=== PATIENT | male | born 1980 | race Caucasian/White ===

== ENCOUNTER 2016-11-21 13:51 | Emergency (ER) | payer OTHER ==
[~2016-11-21] VITALS: Ht 172.7 cm; Wt 81.6 kg
[2016-11-21 14:33] LABS: ABSOLUTE BASOPHIL COUNT 0 /CUMM (0.0-0.2); ABSOLUTE EOSINOPHIL COUNT 0 /CUMM (0.0-0.7); ABSOLUTE GRANULOCYTE CT 10.5 /CUMM (1.4-6.5); ABSOLUTE LYMPH COUNT 2.3 /CUMM (1.2-3.4); ABSOLUTE MONOCYTE COUNT 0.8 /CUMM (0.10-0.60); BASOPHIL % 0.1 % (0.0-2.0); EOSINOPHIL % 0.2 % (0-5); GRANULOCYTE % 76.9 % (42.2-75.2); HEMATOCRIT 48.3 % (42-52); MEAN CORPUSCULAR HGB 30.4 PG (27.0-31.0); MEAN CORPUSCULAR HGB CONC 34.3 G/DL (33.0-37.0); MEAN CORPUSCULAR VOLUME 88.7 FL (80.0-94.0); MEAN PLATELET VOLUME 8.2 FL (7.4-10.4); PLATELET COUNT 259 /CUMM (130-400); RBC DISTRIBUTION WIDTH 13.1 % (11.5-14.5); RED BLOOD CELL CT 5.45 /CUMM (4.70-6.10); WHITE BLOOD CELL COUNT 13.6 /CUMM (4.8-10.8)
--- NOTE | 2016-11-21 15:32 | ED GENERAL ADULT ---
History of Present Illness General Chief Complaint: Abdominal Pain/Flank Pain Stated Complaint: BIBA FOR ABD. 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 STATES AROUND NOON A COUPLE OF HIS PLAYERS GOT INTO TROUBLE AND IT FELT OVERWHELMING TO PT. STATES HE STARTED HAVING MID ABDOMINAL PAIN. PT DENIES N/V/D. DENIES CP OR SOB Triage Nurses Notes Reviewed? yes Onset: Abrupt Duration: hour(s):, resolved prior to arrival Timing: recent history Injury Environment: home No Modifying Factors: none HPI: 36-year-old male comes into the emergency room for further evaluation of some upper abdominal pain that occurred earlier around 12:30. 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 Incident occurred at school with some of the students that caused him to be very stressed out. Patient reports that shortly after the incident he was getting lightheaded dizzy and had some upper burning abdominal pain. He denies any chest pain or shortness of breath. Denies any past medical history. Symptoms lasted for a couple of hours and then reports that since she' s been waiting here his symptoms are resolved this time. He currently has no pain. He has no symptoms at this time. (SANDOVAL ENNIS) Past History Travel History Traveled to [place] past 21 day No Medical History Any Pertinent Medical History? none Surgical History Surgical History: non-contributory Psychosocial History What is your primary language Sinhala Tobacco Use: Never used ETOH Use: occasional use Illicit Drug Use: denies illicit drug use Family History Hx Contributory? No (SANDOVAL ENNIS) Review of Systems Review of Systems Constitutional: Reports: no symptoms. EENTM: Reports: no symptoms. Respiratory: Reports: no symptoms. Cardiovascular: Reports: no symptoms. GI: Reports: see HPI. Genitourinary: Reports: no symptoms. Musculoskeletal: Reports: no symptoms. Skin: Reports: no symptoms. Neurological/Psychological: Reports: no symptoms. Hematologic/Endocrine: Reports: no symptoms. Immunologic/Allergic: Reports: no symptoms. All Other Systems: Reviewed and Negative (SANDOVAL ENNIS) Physical Exam Physical Exam General Appearance: well developed/nourished, no apparent distress, alert Head: atraumatic, active bleeding Eyes: Bilateral: normal appearance, EOMI. Ears, Nose, Throat: normal pharynx, normal ENT inspection, hearing grossly normal Neck: normal inspection Respiratory: normal breath sounds, no respiratory distress Cardiovascular: regular rate/rhythm Gastrointestinal: normal bowel sounds, soft, non-tender Back: normal inspection Extremities: normal inspection, normal range of motion, no edema Neurologic/Psych: awake, alert, oriented x 3, normal gait, normal mood/affect Skin: intact, normal color Core Measures ACS in differential dx? No CVA/TIA Diagnosis: No Severe Sepsis Present: No Septic Shock Present: No (SANDOVAL ENNIS) Progress Differential Diagnoses I considered the following diagnoses in my evaluation of the patient: Cholecystitis, pancreatitis, gastritis, anxiety, CO, vasovagal, panic attack, Plan of Care: Orders Procedure Date/time Status TROPONIN LEVEL 11/21 1730 Complete EKG 11/21 1730 Active EKG 11/21 1526 Active TROPONIN LEVEL 11/21 1411 Complete LIPASE 11/21 1411 Complete COMPREHENSIVE METABOLIC PANEL 11/21 1411 Complete CBC WITHOUT DIFFERENTIAL 11/21 1411 Complete AMYLASE 11/21 1411 Complete Laboratory Tests 11/21/16 1800: Troponin I < 0.01 11/21/16 1424: Anion Gap 14, Estimated GFR > 60, BUN/Creatinine Ratio 23.3, Glucose 119 H, Calcium 10.0, Total Bilirubin 0.5, AST 22, ALT 51, Alkaline Phosphatase 60, Troponin I < 0.01, Total Protein 8.3 H, Albumin 4.6, Globulin 3.7, Albumin/ Globulin Ratio 1.2, Amylase 58, Lipase 39, CBC w Diff NO MAN DIFF REQ, RBC 5.45, MCV 88.7, MCH 30.4, RDW 13.1, MPV 8.2, Gran % 76.9 H, Lymphocytes % 16.6 L, Monocytes % 6.2, Eosinophils % 0.2, Basophils % 0.1, Absolute Granulocytes 10.5 H, Absolute Lymphocytes 2.3, Absolute Monocytes 0.8 H, Absolute Eosinophils 0, Absolute Basophils 0, PUBS MCHC 34.3 Initial ED EKG: normal intervals, normal p-waves, normal QRS complex, normal sinus rhythm, rate (68), nonspecific ST T wave chg Repeat EKG: unchanged (SANDOVAL ENNIS) Departure Departure Disposition: HOME OR SELF CARE Condition: Stable Clinical Impression Primary Impression: Abdominal pain Referrals: UNKNOWN (PCP/Family) Additional Instructions: FOLLOW-UP WITH YOUR PRIMARY CARE DOCTOR. rETURN IF ANY OTHER CONCERNS. Please go over all results of today's visit with your primary care doctor. Contact your primary care doctor to let them know you were here in the emergency room. There may be nonspecific findings which may not be related to your visit today here in the emergency room but may require further evaluation and chronic monitoring by your primary care doctor. If you had a laceration today the chance of foreign body always remains. You should follow-up with your primary care doctor for recheck in 3-5 days for a wound check. If you had an x-ray done there is a chance that a fracture could have been missed on initial read and you should follow-up with your primary care doctor for repeat x-rays if symptoms persist. If your blood pressure was elevated here in the emergency room please have rechecked by her primary care doctor within the next 48 hours by your primary care doctor. If you were prescribed a narcotic here in the emergency room or any type of controlled substances you're not allowed to drive while taking this medication or operate any type of heavy machinery. Narcotics can make you feel lightheaded dizziness nausea and can cause constipation. You may need to metal pickling equipment operator a stool softener. Thank you for choosing [facility] emergency room. Please return to the emergency room immediately if you have any other concerns worsening of symptoms. Departure Forms: Customer Survey General Discharge Information Comments 11/21/2016 7:26:30 PM Patient clinically looks well. Nontoxic-appearing. Patient is on prednisone and this can explain the slightly elevated white count as well as a slightly elevated glucose. He has no abdominal pain or symptoms currently. He has remained asymptomatic here in the emergency room and was reevaluated multiple times. Patient was seen and evaluated by Dr. Phelan. 2 unchanged EKGs. At this time I do not feel that this is an atypical cardiac presentation. (SANDOVAL ENNIS) PA/PROSTHETIC AIDE Co-Sign Statement Statement: ED Attending supervision documentation- [] I saw and evaluated the patient. I have also reviewed all the pertinent lab results and diagnostic results. I agree with the findings and the plan of care as documented in the PA's/PROSTHETIC AIDE's documentation. [x] I have reviewed the ED Record and agree with the PA's/PROSTHETIC AIDE's documentation. [] Additions or exceptions (if any) to the PAs/PROSTHETIC AIDE's note and plan are summarized below: [] (DERRICK URBANO,EVANS Boyce) Critical Care Note Critical Care Note Critical Care Time: non-applicable (SANDOVAL ENNIS)
[2016-11-21] MEDS ORDERED: METHYLPREDNISOLO4 M2 PO (16:26)
[2016-11-21] MEDS ORDERED: MULTI-DAY VITA1 EACH PO (16:27)
[2016-11-21 18:49] VITALS: BP 152/88
== END 2016-11-21 18:55 ==
LOC: ERH 13:51
PROVIDERS: Physician Assistant Medical
DX: R10.10 Upper abdominal pain, unspecified (principal); R42 Dizziness and giddiness
CPT/HCPCS: 93005; 93010